=== PATIENT | female | born 1970 | race Caucasian/White ===

== ENCOUNTER → 2023-09-28 13:54 | Outpatient (CLI) | payer OTHER, SELFPAY ==
--- NOTE | 2023-09-28 13:57 | US_ITS ---
FINAL REPORT CLINICAL HISTORY: Decreased Pulses in feet,CLAUDICATION,REST PAIN,EX SMOKER FINDINGS: COMPLETE ANKLE/BRACHIAL INDICES BILATERAL Ankle brachial indices were obtained. The right CLINTON is 1.2. The left CLINTON is 1.2. IMPRESSION: ABIs are within normal limits bilaterally. Reviewed, Interpreted and Dictated by Thien Kauffman MD Transcribed by Maddi Varma Authenticated and . [facility]
== END ==
PROVIDERS: PCP Family Medicine; Visit Provider Nurse Practitioner Family
DX: R09.89 Other specified symptoms and signs involving the circulatory and respiratory systems (principal)
CPT/HCPCS: 93923

== ENCOUNTER → 2024-04-30 12:00 | Outpatient (CLI) | payer OTHER, SELFPAY | LOC: SL 12:02 | PROVIDERS: PCP Family Medicine; Visit Provider Family Medicine | DX: R40.0 Somnolence (principal) | CPT/HCPCS: G0399 ==